=== PATIENT | female | born 1950 | race Caucasian/White ===

== ENCOUNTER → 2017-02-01 | Outpatient (CLI) | payer MEDICARE, OTHER | END | disposition home or self-care (01) | LOC: CDC 14:37 | DX: R94.31 Abnormal electrocardiogram [ECG] [EKG] (principal) | CPT/HCPCS: 93000 ==

== ENCOUNTER 2017-02-10 11:30 | Inpatient (IN) | payer OTHER ==
[~2017-02-10] VITALS: Ht 165.1 cm; Wt 92.6 kg
[2017-02-10 12:48] LABS: EOSINOPHIL (%) 0.7 % (0-5); EOSINOPHIL COUNT 0.1 K/uL (0-0.3); HEMATOCRIT 40.4 % (36.0-46.0); IMMATURE GRANULOCYTE (%) 0.6 % (0.0-0.7); IMMATURE GRANULOCYTE COUNT 0.1 K/uL; INSTRUMENT ABS NEUTROPHIL CT 8.1 K/uL; LYMPHOCYTE COUNT 1.4 K/uL (1.0-2.8); MCH 28.7 PG (29.0-34.0); MCHC 34.7 G/DL (30.0-36.0); MEAN PLAT.VOLUME 9.4 uM^3 (9.5-12.4); MONOCYTE (%) 7.7 % (3-12); MONOCYTE COUNT 0.8 K/uL (0-0.8); NEUTROPHIL (%) 77.5 % (45-76); NEUTROPHIL COUNT 8.1 K/uL (1.8-6.4); PLATELET COUNT 377 K/uL (156-360); RBC DIS.WIDTH-CV 12.4 % (11.8-14.6); RBC DIS.WIDTH-SD 36.5 % (39-53); RED BLOOD COUNT 4.87 M/uL (3.80-5.20); WHITE BLOOD COUNT 10.4 K/uL (4.1-10.2)
[2017-02-10 12:58] LABS: CHLORIDE 87 mEq/L (99-109); POTASSIUM 3.2 mEq/L (3.7-5.4); SODIUM 125 mEq/L (136-147)
[2017-02-10 13:00] LABS: GLUCOSE 110 mg/dL (70-99)
[2017-02-10 13:01] LABS: ANION GAP 12 MEQ/L (2-14)
[2017-02-10 13:02] LABS: TOTAL BILIRUBIN 1.2 mg/dL (0.0-1.0)
[2017-02-10 13:03] LABS: ALKALINE PHOSPHATASE 45 IU/L (3-129)
[2017-02-10 13:04] LABS: GFR ESTIMATE (CALCULATED) > 59 mL/min/
[2017-02-10 13:05] LABS: UREA NITROGEN (BUN) 15 mg/dL (9-23)
[2017-02-10 13:12] LABS: TROP-I INTERPRETATION NEGATIVE; TROPONIN-I < 0.01 ng/mL (0.0-0.30)
[2017-02-10] MEDS ORDERED: ALENDRONATE SOD70 MG PO (18:24)
[2017-02-10] MEDS ORDERED: HYDROCHLOROTHIA25 MG PO (18:24)
[2017-02-10] MEDS ORDERED: CLOPIDOGREL75 MG PO (18:24)
[2017-02-10] MEDS ORDERED: LISINOPRIL30 MG PO (18:24)
[2017-02-10] MEDS ORDERED: KRILL OIL500 MG PO (18:25)
[2017-02-10] MEDS ORDERED: ONE-A-DAY ESSE1 EAC1 PO (18:25)
[2017-02-10] MEDS ORDERED: LITE COAT ASPI325 M1 PO (18:25)
[2017-02-10] MEDS ORDERED: RANITIDINE HCL150 MG PO (18:25)
[2017-02-10] MEDS ORDERED: CALCIUM 500 +1 EACH PO (18:25)
[2017-02-10] MEDS ORDERED: FLONASE16 G1 BOTH NARES (18:25)
[2017-02-10 22:30] VITALS: BP 128/65
[2017-02-11 00:01] LABS: C DIFF TOXIN NEGATIVE (NEGATIVE)
[2017-02-11 00:08] LABS: INFLUENZA A VIRAL ANTIGEN NEGATIVE; INFLUENZA B VIRAL ANTIGEN NEGATIVE
[2017-02-11 00:09] LABS: PROBE CHECK PASS; SPECIMEN PROCESSING CONTROL PASS
[2017-02-11 04:00] VITALS: BP 137/66
[2017-02-11 07:45] LABS: HEMATOCRIT 33.2 % (36.0-46.0); MCH 28.9 PG (29.0-34.0); MCHC 34.3 G/DL (30.0-36.0); MCV 84.3 FL (83-99); MEAN PLAT.VOLUME 9.7 uM^3 (9.5-12.4); PLATELET COUNT 344 K/uL (156-360); RBC DIS.WIDTH-CV 12.8 % (11.8-14.6); RBC DIS.WIDTH-SD 38.3 % (39-53); RED BLOOD COUNT 3.94 M/uL (3.80-5.20)
[2017-02-11 07:50] LABS: WHITE BLOOD COUNT 16.1 K/uL (4.1-10.2)
[2017-02-11 07:59] VITALS: BP 133/64
[2017-02-11 08:01] LABS: ANION GAP 10 MEQ/L (2-14); CHLORIDE 98 MEQ/L (99-109); GFR ESTIMATE (CALCULATED) > 59 mL/min/; GLUCOSE 111 mg/dL (70-99); POTASSIUM 3.6 MEQ/L (3.7-5.4); SAMPLE HEMOLYSIS CHECK 0; SAMPLE ICTERIC CHECK 0; SAMPLE LIPEMIA CHECK 0; SODIUM 129 MEQ/L (136-147); UREA NITROGEN (BUN) 14 mg/dL (9-23)
[2017-02-11 11:28] VITALS: BP 130/66
[2017-02-11 18:02] LABS: HEMATOCRIT 34.3 % (36.0-46.0); MCV 84.1 FL (83-99)
[2017-02-11 20:00] VITALS: BP 138/70
[2017-02-12] VITALS (10 sets, daily range): BP systolic 105–144; BP diastolic 66–96
[2017-02-12 07:12] LABS: HEMATOCRIT 31.9 % (36.0-46.0); MCH 29.9 PG (29.0-34.0); MCHC 35.1 G/DL (30.0-36.0); MCV 85.3 FL (83-99); MEAN PLAT.VOLUME 9.5 uM^3 (9.5-12.4); PLATELET COUNT 309 K/uL (156-360); RBC DIS.WIDTH-CV 13.3 % (11.8-14.6); RBC DIS.WIDTH-SD 39.8 % (39-53); RED BLOOD COUNT 3.74 M/uL (3.80-5.20); WHITE BLOOD COUNT 12.1 K/uL (4.1-10.2)
[2017-02-12 07:35] LABS: ANION GAP 9 MEQ/L (2-14); CHLORIDE 96 MEQ/L (99-109); GFR ESTIMATE (CALCULATED) > 59 mL/min/; GLUCOSE 105 mg/dL (70-99); POTASSIUM 3.2 MEQ/L (3.7-5.4); SAMPLE HEMOLYSIS CHECK 0; SAMPLE ICTERIC CHECK 0; SAMPLE LIPEMIA CHECK 0; SODIUM 128 MEQ/L (136-147); UREA NITROGEN (BUN) 6 mg/dL (9-23)
[2017-02-12 18:16] LABS: HEMATOCRIT 36.3 % (36.0-46.0); MCV 83.8 FL (83-99)
[2017-02-13 03:41] VITALS: BP 114/67
[2017-02-13 06:21] LABS: HEMATOCRIT 32.1 % (36.0-46.0); MCH 29.4 PG (29.0-34.0); MCHC 34.9 G/DL (30.0-36.0); MCV 84.3 FL (83-99); MEAN PLAT.VOLUME 9.3 uM^3 (9.5-12.4); PLATELET COUNT 370 K/uL (156-360); RBC DIS.WIDTH-CV 13.2 % (11.8-14.6); RBC DIS.WIDTH-SD 39.7 % (39-53); RED BLOOD COUNT 3.81 M/uL (3.80-5.20); WHITE BLOOD COUNT 14.7 K/uL (4.1-10.2)
[2017-02-13 06:37] LABS: ANION GAP 9 MEQ/L (2-14); CHLORIDE 90 MEQ/L (99-109); GFR ESTIMATE (CALCULATED) > 59 mL/min/; GLUCOSE 125 mg/dL (70-99); POTASSIUM 3.3 MEQ/L (3.7-5.4); SAMPLE HEMOLYSIS CHECK 0; SAMPLE ICTERIC CHECK 0; SAMPLE LIPEMIA CHECK 0; SODIUM 124 MEQ/L (136-147); UREA NITROGEN (BUN) 9 mg/dL (9-23)
[2017-02-13 07:56] VITALS: BP 93/57
[2017-02-13 11:51] VITALS: BP 109/55
[2017-02-13 14:33] LABS: CHLORIDE 95 mEq/L (99-109); POTASSIUM 3.5 mEq/L (3.7-5.4); SODIUM 126 mEq/L (136-147)
[2017-02-13 14:34] LABS: MAGNESIUM 2.1 mg/dL (1.3-2.7)
[2017-02-13 14:35] LABS: GLUCOSE 120 mg/dL (70-99)
[2017-02-13 14:36] LABS: ANION GAP 11 MEQ/L (2-14)
[2017-02-13 14:39] LABS: GFR ESTIMATE (CALCULATED) > 59 mL/min/
[2017-02-13 14:40] LABS: UREA NITROGEN (BUN) 11 mg/dL (9-23)
[2017-02-13 16:32] VITALS: BP 119/58
[2017-02-13 17:57] LABS: HEMATOCRIT 29.8 % (36.0-46.0); MCV 84.7 FL (83-99)
[2017-02-13 19:36] VITALS: BP 118/62
[2017-02-13 23:37] VITALS: BP 115/60
[2017-02-14 03:28] VITALS: BP 120/64
[2017-02-14 08:03] VITALS: BP 128/70
[2017-02-14 09:45] LABS: HEMATOCRIT 33.1 % (36.0-46.0); MCH 29.7 PG (29.0-34.0); MCHC 34.1 G/DL (30.0-36.0); MCV 87.1 FL (83-99); MEAN PLAT.VOLUME 9.3 uM^3 (9.5-12.4); PLATELET COUNT 301 K/uL (156-360); RBC DIS.WIDTH-SD 43.4 % (39-53); WHITE BLOOD COUNT 8.9 K/uL (4.1-10.2)
[2017-02-14 10:10] LABS: ANION GAP 10 MEQ/L (2-14); CHLORIDE 99 MEQ/L (99-109); GFR ESTIMATE (CALCULATED) > 59 mL/min/; GLUCOSE 93 mg/dL (70-99); POTASSIUM 3.7 MEQ/L (3.7-5.4); SAMPLE HEMOLYSIS CHECK 0; SAMPLE ICTERIC CHECK 0; SAMPLE LIPEMIA CHECK 0; SODIUM 131 MEQ/L (136-147); UREA NITROGEN (BUN) 10 mg/dL (9-23)
[2017-02-14] MEDS ORDERED: CARDIZEM CD,CA240 MG PO (11:16)
[2017-02-14 11:44] VITALS: BP 129/72
== END 2017-02-14 14:51 | disposition home health service (06) | DRG 394 ==
LOC: EME → EDBD 11:30 → EDOF 21:36 → 5SOUTH 21:36
PROVIDERS: Emergency Medicine; Internal Medicine; Internal Medicine Gastroenterology; Physician Assistant Medical
DX: K55.9 Vascular disorder of intestine, unspecified (principal); E87.1 Hypo-osmolality and hyponatremia; I48.3 Typical atrial flutter; E66.01 Morbid (severe) obesity due to excess calories; K92.1 Melena; K90.0 Celiac disease; J98.11 Atelectasis; R53.1 Weakness; I10 Essential (primary) hypertension; M81.0 Age-related osteoporosis without current pathological fracture; F43.20 Adjustment disorder, unspecified; R55 Syncope and collapse; Z68.33 Body mass index [BMI] 33.0-33.9, adult; Q61.02 Congenital multiple renal cysts
CPT/HCPCS: 70450; 71010; 71020; 74177; 80048; 80048 91; 80053; 80202; 81003; 82436; 82533 91; 83605; 83735; 83930; 83935; 84133; 84300; 84443; 84484; 85014; 85018; 85025; 85027; 87040; 87493; 87502; 87641; 93005; 93306; 94799; 97530 GP; 99281; 99285; C9113; J1650; J1956; J3370; J3480; J7030; J7050; S0073

== ENCOUNTER 2017-02-28 17:57 | Emergency (ER) | payer OTHER ==
[~2017-02-28] VITALS: Ht 165.1 cm; Wt 88.9 kg
[~2017-02-28 17:57] MED LIST: ALENDRONATE SOD70 MG PO; CALCIUM 500 +1 EACH PO; CARDIZEM CD,CA240 MG PO; CLOPIDOGREL75 MG PO; FLONASE16 G1 BOTH NARES; HYDROCHLOROTHIA25 MG PO; KRILL OIL500 MG PO; LISINOPRIL30 MG PO; LITE COAT ASPI325 M1 PO; ONE-A-DAY ESSE1 EAC1 PO; RANITIDINE HCL150 MG PO
[2017-02-28 21:06] LABS: HEMATOCRIT 39.9 % (36.0-46.0); MCH 29.2 PG (29.0-34.0); MCHC 33.3 G/DL (30.0-36.0); MCV 87.7 FL (83-99); MEAN PLAT.VOLUME 8.9 uM^3 (9.5-12.4); PLATELET COUNT 325 K/uL (156-360); RBC DIS.WIDTH-CV 14.1 % (11.8-14.6); RBC DIS.WIDTH-SD 45.1 % (39-53); RED BLOOD COUNT 4.55 M/uL (3.80-5.20); WHITE BLOOD COUNT 6.9 K/uL (4.1-10.2)
[2017-02-28 21:07] LABS: CHLORIDE 102 mEq/L (99-109); POTASSIUM 4.1 mEq/L (3.7-5.4); SODIUM 132 mEq/L (136-147)
[2017-02-28 21:09] LABS: GLUCOSE 102 mg/dL (70-99)
[2017-02-28 21:10] LABS: ANION GAP 10 MEQ/L (2-14)
[2017-02-28 21:13] LABS: GFR ESTIMATE (CALCULATED) > 59 mL/min/
[2017-02-28 21:14] LABS: UREA NITROGEN (BUN) 10 mg/dL (9-23)
[2017-02-28 21:20] LABS: TROP-I INTERPRETATION NEGATIVE; TROPONIN-I < 0.01 ng/mL (0.0-0.30)
[2017-02-28] MEDS ORDERED: CLONIDINE HCL0.1 MG PO (22:52)
[2017-02-28 23:28] VITALS: BP 132/82
== END 2017-02-28 23:30 | disposition home or self-care (01) ==
LOC: EME 17:57 → RME 17:57
PROVIDERS: Emergency Medicine
DX: I10 Essential (primary) hypertension (principal); Z87.891 Personal history of nicotine dependence; Z86.79 Personal history of other diseases of the circulatory system; Z88.0 Allergy status to penicillin
CPT/HCPCS: 70450; 80048; 84484; 85027; 99281; 99285; J7040

== ENCOUNTER 2017-06-23 20:05 | Emergency (ER) | payer OTHER ==
[~2017-06-23] VITALS: Ht 165.1 cm; Wt 95.4 kg
[~2017-06-23 20:05] MED LIST changes: +CLONIDINE HCL0.1 MG PO
[2017-06-23 20:51] LABS: MCH 27.3 PG (29.0-34.0); MCHC 32.5 G/DL (30.0-36.0); MCV 83.9 FL (83-99); MEAN PLAT.VOLUME 10.6 uM^3 (9.5-12.4); PLATELET COUNT 292 K/uL (156-360); RBC DIS.WIDTH-CV 13.2 % (11.8-14.6); RED BLOOD COUNT 4.77 M/uL (3.80-5.20); WHITE BLOOD COUNT 5.4 K/uL (4.1-10.2)
[2017-06-23 20:57] LABS: PROTHROMBIN TIME 10.4 SEC (10.2-12.9)
[2017-06-23 21:00] LABS: CHLORIDE 107 mEq/L (99-109); SODIUM 141 mEq/L (136-147)
[2017-06-23 21:01] LABS: GLUCOSE 116 mg/dL (70-99)
[2017-06-23 21:03] LABS: ANION GAP 14 MEQ/L (2-14)
[2017-06-23 21:05] LABS: GFR ESTIMATE (CALCULATED) > 59 mL/min/
[2017-06-23 21:06] LABS: UREA NITROGEN (BUN) 22 mg/dL (9-23)
[2017-06-23] MEDS ORDERED: KEFLEX500 MG PO (21:40)
[2017-06-23 22:12] VITALS: BP 155/105
== END 2017-06-23 22:13 | disposition home or self-care (01) ==
LOC: EME 20:05
PROVIDERS: Emergency Medicine
DX: R04.0 Epistaxis (principal); I10 Essential (primary) hypertension; Z98.890 Other specified postprocedural states; Z79.02 Long term (current) use of antithrombotics/antiplatelets; Z79.82 Long term (current) use of aspirin; Z87.891 Personal history of nicotine dependence; K90.0 Celiac disease
CPT/HCPCS: 80048; 85027; 85610; 99281; 99284